=== PATIENT | female | born 1990 | race Caucasian/White ===

== ENCOUNTER → 2018-02-28 | Emergency (ER) | payer MEDICAID ==
[~2018-02-28] VITALS: Ht 149.9 cm; Wt 49.9 kg
[2018-02-28 13:50] VITALS: BP 111/77
[2018-02-28 14:42] VITALS: BP_SYST 103; BP_SYST 105; BP_SYST 112; BP_DIAS 62; BP_DIAS 71; BP_DIAS 74
--- NOTE | 2018-02-28 15:02 | Emergency Room Report ---
History of Present Illness General Chief Complaint: General Complaint Source: Patient Present Illness HPI 28-year-old female presents emergency department complaining of intermittent palpitations where she actually feels as though her heart is "slowing down "in addition to feeling weak during these times. Patient also states that her blood pressures been fluctuating this week and running high. Patient states that she has not diagnosed with high blood pressure she was told recent urgent care visit that her blood pressure was high. Patient denies sudden onset headaches, visual changes or dizziness. Patient reports that she feels a bit "woozy" at times where she is feeling palpitations. Patient mother is accompanying the patient states that patient has history of anxiety as well. She denies past medical history in regards to cardiac problems. High blood pressure runs in her family no other cardiac issues in the family. Denies shortness of breath or difficulty breathing denies recent travel. Patient does report that she had some heavy periods. pt. denies pain . reports cycle was about 2 weeks ago. Allergies: Coded Allergies: No Known Allergies (Unverified , 02/28/18) Patient History Past Medical History: see triage record Past Surgical History: none Pertinent Family History: none Last Menstrual Period: 1-2 weeks ago Now: No Immunizations: UTD Reviewed Nursing Documentation: PMH: Agreed; PSxH: Agreed Nursing Documentation-PMH Past Medical History: No Stated History Review of Systems All Other Systems: negative except mentioned in HPI Physical Exam Vital Signs Date Time Temp Pulse Resp B/P (MAP) Pulse Ox O2 Delivery O2 Flow Rate FiO2 02/28/18 13:38 98.5 106 18 111/77 99 Room Air 98.4 Sp02 EP Interpretation: reviewed, normal General Appearance: no apparent distress, alert, GCS 15, non-toxic Head: normocephalic, atraumatic Eyes: bilateral eye normal inspection, bilateral eye PERRL ENT: hearing grossly normal, normal voice Neck: full range of motion Respiratory: chest non-tender, lungs clear, normal breath sounds, speaking full sentences Cardiovascular #1: regular rate, rhythm - pt. not tachycardic on exam. , normal capillary refill Rectal: deferred Genitourinary: normal inspection Musculoskeletal: back normal, gait/station normal, normal range of motion, non- tender Neurologic: alert, oriented x3, responsive, motor strength/tone normal, sensory intact, normal gait, speech normal, grossly normal Psychiatric: judgement/insight normal, anxious Skin: normal color, no rash, warm/dry, well hydrated Medical Decision Making PA Attestation Dr. Dutta is my supervising physician whom pt. management has been discussed with. Diagnostic Impression: Primary Impression: Heart palpitations ER Course 28-year-old female presents emergency department complaining of intermittent palpitations where she actually feels as though her heart is "slowing down "in addition to feeling weak during these times. Patient also states that her blood pressures been fluctuating this week and running high. Patient states that she has not diagnosed with high blood pressure she was told recent urgent care visit that her blood pressure was high. Patient denies sudden onset headaches, visual changes or dizziness. Patient reports that she feels a bit "woozy" at times where she is feeling palpitations. Patient mother is accompanying the patient states that patient has history of anxiety as well. She denies past medical history in regards to cardiac problems. High blood pressure runs in her family no other cardiac issues in the family. Denies shortness of breath or difficulty breathing denies recent travel. Patient does report that she had some heavy periods. pt. denies pain . reports cycle was about 2 weeks ago. Ddx considered but are not limited to MA, arrhythmia, hypokalemia, anemia, hypovolemic, anxiety reaction. Vital signs: are WNL, pt. is afebrile H&PE are most consistent with benign palpitations, will r/o acute arrhythmia or orthostatic causes. pt is NAD. ORDERS: - EK - Orthostatic VS: negative ED INTERVENTIONS: -d/w pt. and Her mother the results of EKG and orthostatic vital sign testing I recommended that this patient follow up with her primary care provider as well as cardiology especially symptoms continue or she may require Holter monitoring. I also discussed with this patient that often times healthcare providers will make, and about vital signs which can be alarming when the values are not in an urgent or emergent value/ rate. also d/w pt. that HTN needs to be DX on two separate visits, and that this is managed by primary care. Pt. given ED return precautions for worsening or new symptoms. DISCHARGE: At this time pt. is stable for d/c to home. Will provide printed patient care instructions, and any necessary prescriptions. Care plan and follow up instructions have been discussed with the patient prior to discharge. EKG Diagnostic Results EP Interpretation: Dr. Dutta Rate: normal - 76 Rhythm: NSR ST Segments: no acute changes ASA given to the pt in ED: No PA Scribe Text This Interpretation was scribed by MAXIMILIAN Salazar. Last Vital Signs Date Time Temp Pulse Resp B/P (MAP) Pulse Ox O2 Delivery O2 Flow Rate FiO2 02/28/18 14:42 98.1 90 20 112/62 98 Room Air 98.1 89 105/74 100 103/71 Disposition: HOME, SELF-CARE Condition: Stable Patient Instructions: Palpitations, [id number] Additional Instructions: Take medications as directed. Follow up with a Primary Care Provider in 3-5 days For CARDIOLOGY REFERRAL, even if your symptoms have resolved. --Please review list of primary care clinics, if you do not already have a primary care provider Return sooner to ED if new symptoms occur, or current symptoms become worse. - Please note that this Emergency Department Report was dictated using [employer] machine operator technology software, occasionally this can lead to erroneous entry secondary to interpretation by the dictation equipment. Amy Salazar Feb 28, 2018 15:02
== END | disposition home or self-care (01) ==
LOC: EMR 14:00
DX: R00.2 Palpitations (principal)
CPT/HCPCS: 93005; 99282